=== PATIENT | female | born 1990 | race Caucasian/White ===

== ENCOUNTER 2024-08-11 09:10 | Emergency (ER) | payer OTHER, SELFPAY ==
[2024-08-11 09:10] VITALS: BMI 24.3
[2024-08-11 09:17] VITALS: BP 139/90
--- NOTE | 2024-08-11 09:59 | ED.GENMED ---
History of Present Illness
General
Chief Complaint: Nasal Problem
Source: patient
Exam Limitations: none
Time Seen by Provider: 08/11/24 09:27
Nursing documentation reviewed up to this point in time: agreed with
History of Present Illness
History of Present Illness:
pt is a 33 y/o F
no sig pmh
here with suspected nasal fracture after accidentlaly walking into a wall
she was in line to vote and then got to the front of the line and was told she had been waiting in the wrong line. was upset and turned suddenly into a wall and displaced her nose to the L
she went into the bathroom and realigned it
bleeding resolved
she has abrasion on her face
no headache, no loc, no thinners
no double vision
no orbital tenderness
teatnus shot unknown, declines
Past History
Past History
ED Past Medical History: None
ED Past Surgical History: None
Social History
Tobacco: Non-smoker
Alcohol: None
Drug: None
Review of Systems
Review of Systems
Allergies reviewed?: Yes
All Other Systems: Not applicable
Phy Exam
Physical Exam
Physical Exam:
GENERAL: Alert , in no apparent distress
HEAD: NCAT
EYE: pupils equal and reactive, EOMs intact
no orbitasl tenderness
ENT: o/p clr, mmm. no hemotympanum
Nose does not appear malaligned
superficial abrasion 2 mm on R nose bridge
slight soft tissue swelling proximal nose
evidence of bleedin gin both nostrils, no active bleeding
superficial abrasion to skin underneath nose
NEUROLOGICAL: Alert and oriented, no focal neuro deficits,
SKIN: Warm and dry, abrasions
PSYCH: Normal and appropriate interaction.
Course
Vital Signs
Initial and Last Documented VS:
Initial Vital Signs
Temp Pulse Resp BP Pulse Ox
98.2 F 80 16 139/90 98
08/11/24 09:17 08/11/24 09:17 08/11/24 09:17 08/11/24 09:17 08/11/24 09:17
Last Documented Vital Signs
Temp Pulse Resp BP Pulse Ox
98.2 F 80 16 139/90 98
08/11/24 09:17 08/11/24 09:17 08/11/24 09:17 08/11/24 09:17 08/11/24 09:17
MDM/Problems Addressed
Differential Diagnosis Includes:
nose fracture, nose contusion
MDM/Problems Addressed:
33 y/o F broke her nose walkinginto a wall
it was displaced but pt self reduced
bleeding controlled
no headache, loc, thinners, double vision
no orbital tenderness
minimal nasal tenderness
no other facial bone tendenress
discussed xrays which were unlikely to change the treatment plan but offered
pt declined
offered tetanus which she declined
rice.
ent
*Critical Care Note
Total Time (30-74mins, 75-104mins- exclusive of procedures): Not Applicable
ED Attending Note
-
Portions of this chart may have been created with voice recognition software.� Occasional wrong word or��sound alike� substitutions may have occurred due to the inherent limitations of voice recognition software.
Discharge Plan
Departure
Patient Disposition: Home (Routine Discharge)
Date of Disposition: 08/11/24
Time of Disposition: 10:08
Patient with high blood pressure during this ER visit?: No
Condition: Fair
Covid-19: Not Applicable
Discharge Problem:
Closed fracture nose
Instructions: Nose Fracture (DC)
Referrals:
NONE,* [Family Provider] -
Clemente Sorto MD [Active] - Follow up in 5-7 days (ENT)
Stand Alone Forms: Return to Work
Activity Restrictions/Additional Instructions:
YOU LIKELY FRACTURED YOUR NOSE
ICE OFF AND ON FREQUENTLY TODAY AN DTOMORROW
MOTRIN 600 MG EVERY 8 HOURS WITH FOOD FOR A FEW DAYS
CALL ENT FOR FOLLOW UP
SLEEP WITH HEAD OF THE BED SLIGHTLY HIGHER TO AVOID MORE SWELLING
AFRIN 2 SPRAYS EACH NOSTRIL 1-2 TIMES A DAY FOR 2 DAYS
RETURN FOR: BLEEDING UNCONTROLLED, SEVERE PAIN, DOUBLE VISION OR ANY CONCERNS.
Interventions
Interventions:
*Risk Screen - Suicide Last Done: 08/11/24 09:17
*General Assessment Last Done: 08/11/24 09:17
*Neglect/Abuse Screening Last Done: 08/11/24 09:17
ED- Fall Risk Assessment Last Done: 08/11/24 09:40
ED-EENT Assessment Last Done: 08/11/24 09:40
Discharge Date and Time
Print Language: [id number]
[2024-08-11] MEDS: MOTRIN 600 MG PO (10:03)
== END 2024-08-11 10:51 | disposition home or self-care (01) ==
LOC: EMR 09:10
PROVIDERS: EMERGENCY PHYSICIAN Emergency Medicine
DX: S02.2XXA Fracture of nasal bones, initial encounter for closed fracture (principal); S00.31XA Abrasion of nose, initial encounter; W22.01XA Walked into wall, initial encounter
CPT/HCPCS: 99282